=== PATIENT | male | born 1975 | race Two or more races ===

== ENCOUNTER 2023-06-03 20:58 | Emergency (ER) | payer OTHER ==
[~2023-06-03] VITALS: Ht 177.8 cm; Wt 81.6 kg
[2023-06-03] MEDS ORDERED: CEFTRIAXONE SODIUM 1,000 MG VIAL IM ONE (22:00)
[2023-06-03] MEDS ORDERED: LIDOCAINE HCL 100 MG/10ML VIAL IJ ONE (22:00)
[2023-06-03] MEDS ORDERED: KETOROLAC TROMETHAMINE 60 MG VIAL IM ONE (22:00)
== END 2023-06-03 22:52 | disposition home or self-care (01) ==
LOC: ER 20:58
DX: S91.311A Laceration without foreign body, right foot, initial encounter (principal); X58.XXXA Exposure to other specified factors, initial encounter; Y93.89 Activity, other specified; Y92.89 Other specified places as the place of occurrence of the external cause; Y99.8 Other external cause status
CPT/HCPCS: 12002; 96372; 99282; J0696; J1885